=== PATIENT | male | born 1970 | race Caucasian/White ===

== ENCOUNTER 2023-11-14 10:13 | Outpatient (CLI) | payer BC, SELFPAY ==
[2023-11-14 19:38] LABS: Basophils Absolute Auto 0.1 K/mm3 (0.0-0.1); Basophils Percent Auto 1.1 % (0.2-1.2); Eosinophils Absolute Auto 0.4 K/mm3 (0-0.3); Eosinophils Percent Auto 3.7 % (0-4.4); Immature Granulocyte Absolute 0.02 K/mm3 (0.00-0.031); Immature Granulocyte Percent A 0.2 % (0-0.5); Lymphocytes Absolute Auto 3.11 K/mm3 (0.9-3.2); Lymphocytes Percent Auto 32.8 % (18.3-44.2); Mean Corpuscular HGB Conc 34.1 g/dl (32-36); Mean Corpuscular Hemoglobin 30.6 pg (26-34); Mean Corpuscular Volume 89.7 fl (80-100); Mean Platelet Volume 10.5 fl (7.4-10.4); Monocytes Absolute Auto 0.8 K/mm3 (0.1-0.6); Monocytes Percent Auto 8.4 % (2.6-8.5); Neutrophils Absolute Auto 5.1 K/mm3 (1.3-6.7); Neutrophils Percent Auto 53.8 % (45.5-73.1); Platelet Count Result 243 k/mm3 (150-375); Red Blood Count 4.57 M/mm3 (4.6-6.20); Red Cell Distribution Width 12.7 % (11.5-14.5); White Blood Count 9.5 K/mm3 (4.5-10.0)
[2023-11-14 19:49] LABS: Alanine Aminotransferase 46 U/L (6-50); Albumin Level 4.5 g/dL (3.5-5.1); Alkaline Phosphatase 63 U/L (38-126); Anion Gap 8 mmol/L (4-12); Aspartate Amino Transferase 43 U/L (17-59); Bilirubin,Total 0.4 mg/dL (0.2-1.3); Blood Urea Nitrogen 14 mg/dL (9-20); Calcium 9.1 mg/dL (8.4-10.2); Carbon Dioxide 29 mmol/L (22-30); Chloride 104 mmol/L (98-107); Cholesterol 144 mg/dL (0-200); Estimated Glomerular Filt Rate > 60; Glucose 78 mg/dL (65-110); HDL Direct 34 mg/dL; Potassium 4.2 mmol/L (3.4-5.0); Sodium 141 mmol/L (137-145); Triglycerides 134 mg/dL (<150)
[2023-11-14 20:00] LABS: LDL Cholesterol Direct 89 mg/dL
[2023-11-14 20:51] LABS: Hemoglobin A1C 5.9 % (<5.7)
[2023-11-16 18:08] LABS: Lipoprotein A <10 nmol/L
[2023-11-20 05:28] LABS: Apolipoprotein B 72 mg/dL
== END 2023-11-14 10:14 | disposition home or self-care (01) ==
LOC: ANHGOSHLAB 10:14
PROVIDERS: PCP Internal Medicine; Visit Provider Internal Medicine
DX: Z12.5 Encounter for screening for malignant neoplasm of prostate (principal); R53.83 Other fatigue; R73.9 Hyperglycemia, unspecified; G47.30 Sleep apnea, unspecified; Z13.228 Encounter for screening for other metabolic disorders; Z12.11 Encounter for screening for malignant neoplasm of colon; Z12.12 Encounter for screening for malignant neoplasm of rectum; Z13.29 Encounter for screening for other suspected endocrine disorder; Z82.49 Family history of ischemic heart disease and other diseases of the circulatory system; Z13.0 Encounter for screening for diseases of the blood and blood-forming organs and certain disorders involving the immune mechanism
CPT/HCPCS: 36415; 80053; 80061; 82172; 83036; 83695; 84153; 84443; 85025; G0103

== ENCOUNTER 2023-12-27 09:38 | Outpatient (CLI) | payer BC, SELFPAY ==
--- NOTE | 2024-01-19 17:06 | WPDHOMESLEEP ---
Sleep Study - Home Unattended Date of Study: 12/27/23 Ordering Provider: Carlitos Rodriguez DO Interpreting Provider: Florecita Cho MD Home Sleep Study Type: Watch PAT Height: 1.88 m Weight: 127.006 kg Body Mass Index: 35.9 Neck Circumference (inches): 19.5 [place]: 14 Reason for Sleep Study Hypersomnolence Sleep History Julio George is a 53-year-old man with difficulty getting to sleep and staying asleep. He uses chewing tobacco before going to bed. He does have choking and gasping at night. He has difficulty breathing while sleeping on his back. He does not awaken with a morning headache nor does he awaken with a dry mouth or a sore throat. He has heartburn at night. He does not wake at night to go to the bathroom. He has difficulty remaining asleep with night time awakenings for unclear reasons. He feels anxious about going to sleep. He feels very fatigued and sleepy during the day. On awakening, he does not feel refreshed. He has an urge to fall asleep during the day however he denies feeling sleepy while driving. He does not grind his teeth at night. He does not have any uncomfortable urges in his legs or kicking at night. His usual bedtime is around 11:00 p.m. falling asleep within a 1/2 hour, spending 5-1/2 hours in bed and about 5 hours 15 minute sleeping. On weekends his bedtime is the same, 11:00 p.m., falling asleep within 15 minutes. He spent 7 hours in bed but again only about 5-1/2 hours sleeping. His sleep on the weekends is a bit more restorative than his sleep during week days. He does not take naps. Habits:??Tobacco:never smoker, does use chewing tobacco Caffeine:1-2 cups daily Alcohol:1-2 per week Recreational substances: none PMFSH Past Medical History Medical History Family history of abdominal aortic aneurysm Family history of premature CAD Lateral epicondylitis of right elbow [facility] Right elbow pain Surgical History Surgical History H/O shoulder surgery Distal Bicep Repair ([id number]) - Dr. Sky Gunn Family History Family History (Updated 01/25/24 @ 12:50 by Florecita Cho MD) Mother Heart problem Hypertension Diabetes mellitus Father Depression Anxiety Lymphoma Sibling Heart problem Depression Anxiety Grandparent Heart problem Grandparent Cerebrovascular accident Diabetes mellitus Grandparent Heart problem Social History Social History Smoking status: Never smoker Smokeless tobacco user: chewing tobacco Second hand tobacco smoke exposure: Yes Alcohol intake: current Alcohol use details: 7-14 drinks per week Substance use: never Do You Feel Safe in your Home?: Yes Lack of Transportation: No Lack of Food: Never True Current Housing: I Have Housing Concerned About Future Housing: No Difficulty Paying Gas/Electric Bills: No Difficulty Paying for Meds: No Currently Unemployed: No Education: High School Diploma/GED Difficulty w/ Childcare or Family Care: No Living arrangements: with family Occupation/Education: occupation Gender identity (if verbalized by the patient): Male Sexual Orientation (if Verbalized by the Patient): Straight or Heterosexual Agree to blood products: Yes Medications Home Medications Medication Instructions Recorded Confirmed Type baclofen 10 mg tablet 10 mg PO TID PRN muscle spasm #30 01/04/24 01/04/24 Rx tabs methylprednisolone 4 mg tablets in See Rx Instructions PO PER PKG DIR 01/04/24 01/04/24 Rx a dose pack (Medrol (Stefano)) #21 ea Sleep Procedure The sleep study was completed using AudioscribePAT a technically adequate device with seven channels: peripheral arterial tone, actigraphy, body position, snore, respiratory movement, pulse oximet
[2024-01-25 12:43] VITALS: BMI 35.9
== END 2023-12-28 10:58 | disposition home or self-care (01) ==
LOC: ANHCSM 09:38
PROVIDERS: PCP Internal Medicine; Visit Provider Internal Medicine
DX: G47.33 Obstructive sleep apnea (adult) (pediatric) (principal); G47.00 Insomnia, unspecified; R53.83 Other fatigue; Z68.35 Body mass index [BMI] 35.0-35.9, adult
CPT/HCPCS: 95800